=== PATIENT | female | born 1960 | race Caucasian/White ===

== ENCOUNTER 2024-02-18 13:58 | Emergency (ER) | payer OTHER, SELFPAY ==
[2024-02-18] VITALS (18 sets, daily range): BP systolic 109–147; BP diastolic 65–94; PULSE 63–85; RESP 11–30; TEMP 36.9; O2SAT 97–100; BMI 24.1
--- NOTE | 2024-02-18 14:18 | DI.RAD.S_ITS ---
PROCEDURE: XR HIP W PEL IF DONE LT 2V INDICATIONS: feels like hip is dislocated TECHNIQUE: AP pelvis and lateral view of the hip acquired. COMPARISON: None. FINDINGS: Bones: Patient is status post left hip arthroplasty. The femoral component is dislocated superiorly to the acetabular component. The visualized bony structures appear intact. Soft tissues: Overlying postoperative changes are noted. No suspicious soft tissue densities. IMPRESSION: Left hip arthroplasty dislocation. Dictated by: Alok Baldwin M.D. on 02/18/2024 at 15:18 Approved by: Alok Baldwin M.D. on 02/18/2024 at 15:18
--- NOTE | 2024-02-18 15:18 | ED_ITS ---
HPI - Extremity Injury (Lower) General Chief Complaint: Extremity Injury, Lower Stated Complaint: dislocated Left hip Time Seen by Provider: 02/18/24 14:50 Source: patient Mode of arrival: Wheelchair History of Present Illness HPI Narrative: 63-year-old female with history of prosthetic left hip presents for suspected hip dislocation. Patient states that she is in the process of talking to an orthopedic surgeon about a revision of her hip joint, however this has not been able to be arranged yet. She states that she was rolling over in bed when she felt her hip dislocate. Related Data Allergies Allergy/AdvReac Type Severity Reaction Status Date / Time No Known Drug Allergies Allergy Verified 02/18/24 14:10 Review of Systems Review of Systems Narrative: Negative except as noted above Patient History Social History Smoking Status: Never smoker Smoking Status: Never smoker alcohol intake frequency: holidays/special occasions only Substance Use Type: does not use Exam Initial Vital Signs Initial Vital Signs: Vital Signs Temperature 98.4 F 02/18/24 14:10 Pulse Rate 83 02/18/24 14:10 Respiratory Rate 18 02/18/24 14:10 Blood Pressure 116/74 02/18/24 14:10 Pulse Oximetry 97 02/18/24 14:10 Oxygen Delivery Method Room Air 02/18/24 14:10 Const: Awake, alert, no acute distress Cardiac: regular rate, regular rhythm RESP: unlabored, clear bilaterally, no wheezing GI: Soft, nontender, nondistended, no rebound, no guarding MSK: Left lower extremity shortened, internally rotated Skin: Warm, Dry, intact, no rashes Neuro: AO x3, CN II-XII grossly intact, moves all extremities Procedures Orthopedic Joint Reduction Joint #1: Time Out Performed: Yes Side: left Joint Reduction Location: hip Analgesia: procedural sedation Technique used: traction/counter-traction Post-reduction neuro exam: intact and no change Post-reduction vascular: intact and no change Post Reduction X-Ray Obtained: Yes Post Reduction X-Ray Results: reduced Patient Tolerated Procedure: Well and No complications Procedural Sedation Consent signed: Yes Time out performed: Yes Indication: fracture/dislocation reduction ASA Class: III Mallampati Airway Classification: Class I Time of Last PO Intake: 12:00 Preparation: track laborer applied, pulse oximeter, capnometry used, supplemental O2 applied, suction/airway equipment at bedside and IV secured IV Propofol dose (mg): 70 Intraservice time/total sedation time (min): 10 ED Sedation Level: Moderate (Concious) Complications: none Additional Comments: Successful reduction Course Orders Ordered: ED Orders 02/18/24 14:17 Consult to STAFF CYTOTECHNOLOGIST - Civil Engineering Designer Stat 02/18/24 14:18 XR hip w pel if done LT 2V Stat 02/18/24 15:30 CMP [Comprehensive Metabolic Panel] Stat Complete Blood Count AUTO DIFF Stat 02/18/24 17:10 XR hip w pel if done LT 2V Stat Discontinued Medications Hydromorphone HCl (Hydromorphone 1 Mg Inj) 1 mg IV NOW ONE Stop: 02/18/24 15:47 Last Admin: 02/18/24 15:58 Dose: 1 mg Documented By: DOM Propofol (Propofol 200 Mg/20 Ml Vial) 130 mg 2 mg/kg (130 mg) IV NOW ONE Stop: 02/18/24 15:49 Last Admin: 02/18/24 17:08 Dose: 70 mg Documented By: RAFAELA Vital Signs Vital signs: Vital Signs - 8 hr 02/18/24 14:10 02/18/24 16:00 02/18/24 16:30 Temperature 98.4 F Pulse Rate 83 85 70 Respiratory Rate 18 Blood Pressure 116/74 Pulse Oximetry 97 100 97 Oxygen Delivery Method Room Air 02/18/24 16:37 02/18/24 16:37 02/18/24 16:45 Temperature Pulse Rate 75 Respiratory Rate Blood Pressure 132/83 147/85 H Pulse Oximetry 99 Oxygen Delivery Method 02/18/24 16:45 02/18/24 17:00 02/18/24 17:00 Temperature Pulse Rate 76 67 Respiratory Rate 16 12 Blood Pressure 138/69 Pulse Oximetry 100 99 Oxygen Delivery Method Room Air 02/18/24 17:10 02/18/24 17:10 02/18/24 17:12 Temperature Pulse Rate 76 Respiratory Rate 25 H Blood Pressure 125/74 137/67 Pulse Oximetry 100 Oxygen Delivery Method 02/18/24 17:12 02/18/24 17:16 02/18/24 17:16 Temperature Pulse Rate 75 78 Respiratory Rate 16 18 Blood Pressure 132/73 Pulse Oximetry 99 99 Oxygen Delivery Method Room Air Room Air 02/18/24 17:21 02/18/24 17:21 02/18/24 17:25 Temperature Pulse Rate 75 Respiratory Rate 24 Blood Pressure 129/87 133/84 Pulse Oximetry 100 Oxygen Delivery Method Room Air 02/18/24 17:25 02/18/24 17:29 02/18/24 17:30 Temperature Pulse Rate 72 75 Respiratory Rate 24 24 Blood Pressure 136/94 H Pulse Oximetry 100 100 Oxygen Delivery Method Room Air Room Air 02/18/24 17:30 Temperature Pulse Rate 71 Respiratory Rate 24 Blood Pressure 140/78 Pulse Oximetry 100 Oxygen Delivery Method Room Air MDM - Extremity Injury (Lower) Differential Diagnosis Differential diagnosis: Likely ankle sprain and strain, acute internal derangement of knee and fracture of femur Lab Data 02/18/24 15:30 02/18/24 15:30 Labs: Lab Results 02/18/24 Range/Units 15:30 WBC 10.0 (4.5-11.0) X10^3/uL RBC 4.57 (4.0-5.2) X10^6/uL Hgb 14.4 (12.0-16.0) g/dL Hct 41.6 (36-46) % MCV 90.9 (80-100) fL MCH 31.4 (26-34) PG MCHC 34.5 (30-36) % RDW 12.8 (11.6-14.8) % Plt Count 253 (150-400) X10^3/uL Neut % (Auto) 84.0 H (50-75) % Lymph % (Auto) 8.7 L (25-40) % [place] % (Auto) 6.1 (3-14) % Eos % (Auto) 0.8 L (2-4) % Baso % (Auto) 0.4 (0-2) % Neut # (Auto) 8400 H (7876-1293) /uL Lymph # (Auto) 900 L (2440-0299) /uL [place] # (Auto) 600 (0-900) /uL Eos # (Auto) 100 (0-450) /uL Baso # (Auto) 0 (0-100) /uL Sodium 140 (137-145) mmol/L Potassium 4.0 (3.4-5.1) mmol/L Chloride 108 H (98-107) mmol/L Carbon Dioxide 28 (22-32) mmol/L BUN 16 (7-17) mg/dL Creatinine 0.66 (0.52-1.04) mg/dL Estimated GFR > 60 (>60) mL/min BUN/Creatinine Ratio 24.2 H (6-22) Glucose 96 (80-110) mg/dL Calcium 9.4 (8.4-10.2) mg/dL Total Bilirubin 0.7 (0.2-1.3) mg/dL AST 26 (14-36) IU/L ALT 13 (<35) IU/L Alkaline Phosphatase 90 (38-126) U/L Total Protein 8.1 (6.3-8.2) g/dL Albumin 4.2 (3.5-5.0) g/dL Globulin 3.9 (1.7-4.1) g/dL Albumin/Globulin Ratio 1.1 (1.0-2.8) Imaging Data Extremity x-ray #1: Radiologist's Impression: PROCEDURE: XR HIP W PEL IF DONE LT 2V INDICATIONS: feels like hip is dislocated TECHNIQUE: AP pelvis and lateral view of the hip acquired. COMPARISON: None. FINDINGS: Bones: Patient is status post left hip arthroplasty. The femoral component is dislocated superiorly to the acetabular component. The visualized bony structures appear intact. Soft tissues: Overlying postoperative changes are noted. No suspicious soft tissue densities. IMPRESSION: Left hip arthroplasty dislocation. Dictated by: Alok Baldwin M.D. on 02/18/2024 at 15:18 Approved by: Alok Baldwin M.D. on 02/18/2024 at 15:18 Extremity x-ray #2: Radiologist's Impression: PROCEDURE: XR HIP W PEL IF DONE LT 2V INDICATIONS: POST REDUCTION TECHNIQUE: 2 view(s) of the hip acquired. COMPARISON: [facility], XR HIP W PEL IF DONE LT 2V, 02/18/2024, 14:28. FINDINGS: Bones: Patient is status post left hip arthroplasty. There is interval reduction of earlier noted posterior superior left hip prosthesis dislocation. Left hip alignment is now anatomic. No gross hardware loosening or failure. No gross acute periprosthetic fracture. Soft tissues: No suspicious soft tissue densities. IMPRESSION: Interval reduction of earlier noted left hip prosthesis dislocation with anatomic left hip alignment. No gross hardware loosening or failure. No acute periprosthetic fracture. Dictated by: Vlad Zambrano M.D. on 02/18/2024 at 17:27 Approved by: Vlad Zambrano M.D. on 02/18/2024 at 17:28 [facility] Narrative Medical decision making narrative: Accidental dislocation of left hip. Neurologically intact. Hip reduced per procedure note successfully. Patient states she has ongoing discussions about getting her hip joint revised, however a local referral provided if patient desires to follow up locally. ED return precautions discussed at bedside. Patient expressed understanding of the plan and is in agreement at this time. All questions answered at the time of discharge. Discharge Plan Departure Patient Disposition: Home Clinical Impression: Hip dislocation, left Qualifiers: Encounter type: initial encounter Qualified Code(s): S73.005A - Unspecified dislocation of left hip, initial encounter Instructions: DI for Hip Dislocation -- Adult, DI for Moderate Sedation Activity Restrictions/Additional Instructions: Please follow up with Orthopedic surgery for your prosthetic joint. A local referral has been provided if you care to follow up in this area. Referrals: Miscellaneous,MD Warren [Primary Care Provider] - Lynn Story MD [Physician] - Stand Alone Forms: Patient Portal/API
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
[2024-02-18 15:44] LABS: Add Manual Diff / Slide Review NO; Basophils Absolute Auto 0 /uL (0-100); Basophils Percent Auto 0.4 % (0-2); Eosinophils Absolute Auto 100 /uL (0-450); Eosinophils Percent Auto 0.8 % (2-4); Hematocrit 41.6 % (36-46); Hemoglobin 14.4 g/dL (12.0-16.0); Lymphocytes Absolute Auto 900 /uL (1100-4500); Lymphocytes Percent Auto 8.7 % (25-40); Mean Corpuscular HGB Conc 34.5 % (30-36); Mean Corpuscular Hemoglobin 31.4 PG (26-34); Mean Corpuscular Volume 90.9 fL (80-100); Monocytes Absolute Auto 600 /uL (0-900); Monocytes Percent Auto 6.1 % (3-14); Neutrophils Absolute Auto 8400 /uL (1500-7000); Platelet Count 253 X10^3/uL (150-400); Red Blood Cell Count 4.57 X10^6/uL (4.0-5.2); Red Cell Distribution Width 12.8 % (11.6-14.8)
[2024-02-18 15:52] LABS: Alanine Aminotransferase 13 IU/L (<35); Albumin 4.2 g/dL (3.5-5.0); Albumin Globulin Ratio 1.1 (1.0-2.8); Alkaline Phosphatase 90 U/L (38-126); Aspartate Aminotransferase 26 IU/L (14-36); BUN Creatinine Ratio 24.2 (6-22); Bilirubin Total 0.7 mg/dL (0.2-1.3); Blood Urea Nitrogen 16 mg/dL (7-17); Calcium 9.4 mg/dL (8.4-10.2); Carbon Dioxide 28 mmol/L (22-32); Chloride 108 mmol/L (98-107); Estimated Glomerular Filt Rate > 60 mL/min (>60); Globulin 3.9 g/dL (1.7-4.1); Glucose 96 mg/dL (80-110); HEMOLYSIS < 15 (0-50); Sodium 140 mmol/L (137-145); Total Protein 8.1 g/dL (6.3-8.2)
[2024-02-18] MEDS: HYDROMORPHONE 1 MG INJ IV (15:58)
[2024-02-18] MEDS: propofoL 200 MG/20 ML VIAL 130 MG IV (17:08)
--- NOTE | 2024-02-18 17:10 | DI.RAD.S_ITS ---
PROCEDURE: XR HIP W PEL IF DONE LT 2V INDICATIONS: POST REDUCTION TECHNIQUE: 2 view(s) of the hip acquired. COMPARISON: [facility], [facility], XR HIP W PEL IF DONE LT 2V, 02/18/2024, 14:28. FINDINGS: Bones: Patient is status post left hip arthroplasty. There is interval reduction of earlier noted posterior superior left hip prosthesis dislocation. Left hip alignment is now anatomic. No gross hardware loosening or failure. No gross acute periprosthetic fracture. Soft tissues: No suspicious soft tissue densities. IMPRESSION: Interval reduction of earlier noted left hip prosthesis dislocation with anatomic left hip alignment. No gross hardware loosening or failure. No acute periprosthetic fracture. Dictated by: Vlad Zambrano M.D. on 02/18/2024 at 17:27 Approved by: Vlad Zambrano M.D. on 02/18/2024 at 17:28
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
== END 2024-02-18 18:17 | disposition home or self-care (01) ==
PROVIDERS: Emergency Provider Emergency Medicine
DX: T84.021A Dislocation of internal left hip prosthesis, initial encounter (principal)
CPT/HCPCS: 27265; 36415; 73502; 80053; 85025; 96374; 99152; 99284; 99285; 99291; J1170; J2704